=== PATIENT | male | born 1995 | race Caucasian/White ===

== ENCOUNTER 2017-12-29 15:14 | Emergency (ER) | payer BC ==
[~2017-12-29] VITALS: Ht 182.9 cm; Wt 76.6 kg
[2017-12-29 15:17] VITALS: TEMP 36.7; Ht 182.9 cm; Wt 76.6 kg
[2017-12-29 15:34] VITALS: O2SAT 96
--- NOTE | 2017-12-29 15:44 | EMERGENCY ROOM VISIT NOTE ---
History Report prepared by Taiwo: José Manuel Parada Under the Supervision of: Dr. Jasen Sharp M.D. First contact with patient: 15:19 Chief Complaint: CHEST PAIN Stated Complaint: CHEST PAIN,LEFT ARM PAIN History of Present Illness The patient is a 22 year old male who presents to the Emergency Room with complaints of intermittent, sharp, chest pain beginning a month ago. The patient states his symptoms were intermittent and lasted about 10-15 seconds at first. He reports his symptoms now last for 4-5 minutes at a time. The patient notes he gets dizzy before his episode, is not dizzy during the episode, and then becomes dizzy when the chest pain stops. He states he currently does not have symptoms. The patient reports his symptoms typically occur when he is lying down, and he sometimes gets it when he is sitting up as well. He notes he has not seen a PCP yet because he just moved here. The patient states he does not have chronic health problems, and he smokes almost a pack of cigarettes a day. He reports his biological brother of a heart aneurysm in his 30s, and he does not know the cause of the aneurysm. The patient notes his biological mother has a heart history. 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 The patient reports he does not know if he has a family history of connective tissue disease. He denies alcohol or drug use, fevers, chills, cough, congestion, nausea, vomiting, burning with urination, diarrhea, recent trips, increased pain with eating, and a history of blood clots or gallstones. Source of History: patient Onset: a month ago Position: chest Symptom Intensity: 4-5 minutes Quality: sharp Timing: intermittent Modifying Factors (Worsening): other (lying down) Associated Symptoms: No fevers, No chills, No cough, No nausea, No diarrhea Note: Denies: congestion, burning with urination, recent trips, increased pain with eating Review of Systems See HPI for pertinent positives and negatives. A total of ten systems were reviewed and were otherwise negative. Past Medical & Surgical Medical Problems: (1) No Known Active Medical Problems Family History Heart disease Social History Smoking Status: Current Every Day Smoker Marital Status: single Housing Status: lives with family Occupation Status: employed Current/Historical Medications No Active Prescriptions or Reported Meds Allergies Coded Allergies: No Known Allergies (Unverified , 12/29/17) Physical Exam Vital Signs Date Time Temp Pulse Resp B/P (MAP) Pulse Ox O2 Delivery O2 Flow Rate FiO2 12/29/17 18:36 69 18 122/64 100 12/29/17 18:02 66 16 125/60 99 Room Air 12/29/17 17:21 52 16 122/66 100 Room Air 12/29/17 16:32 61 12/29/17 16:22 65 18 144/85 98 Room Air 12/29/17 15:34 96 Room Air 12/29/17 15:31 97 Room Air 12/29/17 15:17 36.7 70 16 148/79 99 Room Air Physical Exam GENERAL: Awake, alert, well-appearing, in no distress HENT: Normocephalic, atraumatic. Oropharynx unremarkable. EYES: Normal conjunctiva. Sclera non-icteric. NECK: Supple. No nuchal rigidity. FROM. No JVD. RESPIRATORY: Clear to auscultation. CARDIAC: Regular rate, normal rhythm. Extremities warm and well perfused. Pulses equal. ABDOMEN: Soft, non-distended. Mild epigastric discomfort without discrete tenderness to palpation. No rebound or guarding. No masses. RECTAL: Deferred. MUSCULOSKELETAL: Chest examination reveals no tenderness. The back is symmetrical on inspection without obvious abnormality. There is no CVA tenderness to palpation. No joint edema. LOWER EXTREMITIES: Calves are equal size bilaterally and non-tender. No edema. No discoloration. NEURO: Normal sensorium. No sensory or motor deficits noted. SKIN: No rash or jaundice noted. Medical Decision & Procedures ER Provider Diagnostic Interpretation: Bedside echocardiogram per my interpretation: [] Radiology results as stated below per my review and radiologist interpretation: CHEST ONE VIEW PORTABLE CLINICAL HISTORY: Atypical chest pain COMPARISON STUDY: No previous studies for comparison. FINDINGS: The cardiac and mediastinal contours are normal. Mild left hilar prominence is likely vascular. No pneumothorax is visualized. There is no evidence of focal pulmonary consolidation. There is no evidence of failure. No pleural effusions are visualized.[ IMPRESSION: No active disease in the chest. Electronically signed by: Vincent Stevenson M.D. 12/29/2017 3:41 PM Dictated Date/Time: 12/29/2017 3:41 PM Laboratory Results 12/29/17 15:45 Red Blood Count 5.03, Mean Corpuscular Volume 83.3, Mean Corpuscular Hemoglobin 29.6, Mean Corpuscular Hemoglobin Concent 35.6, Mean Platelet Volume 9.8, Neutrophils (%) (Auto) 74.8, Lymphocytes (%) (Auto) 15.8, Monocytes (%) (Auto) 9.0, Eosinophils (%) (Auto) 0.1, Basophils (%) (Auto) 0.1, Neutrophils # (Auto) 6.00, Lymphocytes # (Auto) 1.27, Monocytes # (Auto) 0.72, Eosinophils # (Auto) 0.01, Basophils # (Auto) 0.01 12/29/17 15:45 Test 12/29/17 15:45 12/29/17 17:30 White Blood Count 8.03 K/uL (4.8-10.8) Red Blood Count 5.03 M/uL (4.7-6.1) Hemoglobin 14.9 g/dL (14.0-18.0) Hematocrit 41.9 % (42-52) Mean Corpuscular Volume 83.3 fL (80-100) Mean Corpuscular Hemoglobin 29.6 pg (25-34) Mean Corpuscular Hemoglobin Concent 35.6 g/dl (32-36) Platelet Count 215 K/uL (130-400) Mean Platelet Volume 9.8 fL (7.4-10.4) Neutrophils (%) (Auto) 74.8 % Lymphocytes (%) (Auto) 15.8 % Monocytes (%) (Auto) 9.0 % Eosinophils (%) (Auto) 0.1 % Basophils (%) (Auto) 0.1 % Neutrophils # (Auto) 6.00 K/uL (1.4-6.5) Lymphocytes # (Auto) 1.27 K/uL (1.2-3.4) Monocytes # (Auto) 0.72 K/uL (0.11-0.59) Eosinophils # (Auto) 0.01 K/uL (0-0.5) Basophils # (Auto) 0.01 K/uL (0-0.2) RDW Standard Deviation 38.6 fL (36.4-46.3) RDW Coefficient of Variation 12.8 % (11.5-14.5) Immature Granulocyte % (Auto) 0.2 % Immature Granulocyte # (Auto) 0.02 K/uL (0.00-0.02) Anion Gap 5.0 mmol/L (3-11) Est Creatinine Clear Calc Drug Dose 126.6 ml/min Estimated GFR () 124.1 Estimated GFR (Non- 107.1 BUN/Creatinine Ratio 11.1 (10-20) Calcium Level 8.7 mg/dl (8.5-10.1) Magnesium Level 2.1 mg/dl (1.8-2.4) Total Bilirubin 0.8 mg/dl (0.2-1) Direct Bilirubin 0.2 mg/dl (0-0.2) Aspartate Amino Transf (AST/SGOT) 18 U/L (15-37) Alanine Aminotransferase (ALT/SGPT) 33 U/L (12-78) Alkaline Phosphatase 73 U/L (45-117) Troponin I < 0.015 ng/ml (0-0.045) Total Protein 7.7 gm/dl (6.4-8.2) Albumin 4.2 gm/dl (3.4-5.0) Lipase 141 U/L (73-393) Bedside Troponin I < 0.030 ng/ml (0-0.045) Laboratory results reviewed by me Medications Administered Medications (Trade) Dose Ordered Sig/Camilla Route Start Time Stop Time Status Last Admin Dose Admin Sodium Chloride 1,000 ml @ 999 mls/hr Q1H1M STAT IV 12/29/17 15:45 12/29/17 16:45 DC 12/29/17 15:49 999 MLS/HR Sodium Chloride 1,000 ml @ 999 mls/hr Q1H1M STAT IV 12/29/17 17:02 12/29/17 18:02 DC 12/29/17 17:21 999 MLS/HR ECG Per My Interpretation Indication: chest pain Rate (beats per minute): 58 Rhythm: sinus bradycardia Findings: RBBB (incomplete), no acute ischemic change, other (Normal axis.) ED Course 1526: The patient was evaluated in room B11B. A complete history and physical exam was performed. 1638: I reevaluated the patient and performed a bedside echocardiogram. Please refer to the diagnostic interpretation for findings. Medical Decision I reviewed the patient's past medical history, medications, and the nursing notes as described above. Differential diagnosis: Etiologies such as cardiac ischemia, aortic dissection, pulmonary embolism, pneumonia, pneumothorax, musculoskeletal, infections, pericarditis, myocarditis , esophageal rupture, gastrointestinal, as well as others were entertained. Patient is a 22-year-old gentleman with a family history of a biological brother who he believes in his 30s from a "heart aneurysm" per hpi. While the patient is well-appearing in no acute distress, afebrile, hypertensive with systolic in the 140s but otherwise stable vital signs. EKG incomplete right bundle branch block and is unremarkable. Chest x-ray unremarkable with clear lungs and normal mediastinum. Bedside echo demonstrates grossly normal LV size and function, no pericardial effusion, question of slightly enlarged RV with grossly normal function. Aortic root 29mm wnl. Findings discussed with the patient and sister at bedside however sister is concerned regarding the family history of aneurysm. Thus, CTA performed and unremarkable, negative for dissection,aneurysm, or PE. Delta troponin again negative. Heart score 1, low risk, acs unlikely. Unclear etiology to patient's sx at this time. Given patients reproducible epigastric discomfort sx possibly reflux although asymptomatic at this time. Patient counseled on smoking cessation. Plan for f/u with pcp and possible cardiology referral for holter monitor/formal echo. Findings and plan for follow-up reviewed with patient. Patient agreeable and d/c 'd per discharge instructions. Medication Reconcilliation Current Medication List: was personally reviewed by me Blood Pressure Screening Patient's blood pressure: Normal blood pressure Blood pressure disposition: Did not require urgent referral Impression Primary Impression: Substernal precordial chest pain Scribe Attestation The scribe's documentation has been prepared under my direction and personally reviewed by me in its entirety. I confirm that the note above accurately reflects all work, treatment, procedures, and medical decision making performed by me. Departure Information Dispostion Home / Self-Care Prescriptions No Active Prescriptions or Reported Meds Referrals No Doctor, Assigned (PCP) Gaetano Nolasco M.D. Patient Instructions ED Chest Pain Atypical Unkn Cause, ED Smoking Cessation, My [facility] Additional Instructions Please follow up with and establish care with a primary care physician in the next week for re-evaluation and likely cardiology referral. We have provided you with an option for cardiology follow-up with Dr. Nolasco, if needed. The cause of your symptoms is unclear at this time. Otherwise, your exam, EKG, chest xray, lab results, bedside US of your heart, and CT scan of your aorta did not show signs of an emergent condition at this time. Drink plenty of fluids to ensure hydration. You should stop smoking as this will improve your symptoms in the short-term, as well as minimize your risk for developing medical problems in the future. Return to the emergency department for worsening symptoms as described in the accompanying instructions.
[2017-12-29] MEDS ORDERED: SODIUM CHLORIDE 0.9% 1000ML 1,000 ML IV STA ×2 (15:45→17:02)
[2017-12-29 15:55] LABS: BASO % 0.1 %; BASO ABS # 0.01 K/uL (0-0.2); EOS % 0.1 %; EOS ABS # 0.01 K/uL (0-0.5); HEMATOCRIT 41.9 % (42-52); HEMOGLOBIN 14.9 g/dL (14.0-18.0); IG# 0.02 K/uL (0.00-0.02); LYMPH % 15.8 %; LYMPH ABS # 1.27 K/uL (1.2-3.4); MEAN CELL VOLUME 83.3 fL (80-100); MEAN CORPUSCULAR HEMOGLOBIN 29.6 pg (25-34); MEAN CORPUSCULAR HGB CONC 35.6 g/dl (32-36); MEAN PLATELET VOLUME 9.8 fL (7.4-10.4); MONO ABS # 0.72 K/uL (0.11-0.59); NEUT % 74.8 %; PLATELET COUNT 215 K/uL (130-400); RED CELL DISTRIBUTION WIDTH CV 12.8 % (11.5-14.5); RED CELL DISTRIBUTION WIDTH SD 38.6 fL (36.4-46.3); WHITE BLOOD COUNT 8.03 K/uL (4.8-10.8)
[2017-12-29 16:20] LABS: ALBUMIN 4.2 gm/dl (3.4-5.0); ALKALINE PHOSPHATASE 73 U/L (45-117); ALT/SGPT 33 U/L (12-78); AST/SGOT 18 U/L (15-37); BLOOD UREA NITROGEN 11 mg/dl (7-18); CALCIUM 8.7 mg/dl (8.5-10.1); CARBON DIOXIDE 28 mmol/L (21-32); GLUCOSE 118 mg/dl (70-99); LIPASE 141 U/L (73-393); POTASSIUM 3.9 mmol/L (3.5-5.1); SODIUM 136 mmol/L (136-145); TOTAL PROTEIN 7.7 gm/dl (6.4-8.2)
[2017-12-29] MEDS ORDERED: OPTIRAY 320 IV PRN (17:15)
--- NOTE | 2017-12-29 18:11 | DIAGNOSTIC IMAGING REPORT ---
CT ANGIOGRAPHY OF THE CHEST WITHOUT AND WITH CONTRAST CLINICAL HISTORY: Atypical chest pain. Possible dissection. COMPARISON STUDY: No previous studies for comparison. FINDINGS: Unenhanced images were obtained the thorax. Patient was then scanned in a dynamic helical fashion during intravenous administration 115 cc of Optiray 320. MIP imaging was performed. A dose reduction technique was utilized according to the principles of ALARA Unenhanced images reveal no evidence of acute aortic hematoma. Postcontrast images reveal no thyroid masses. There are no pathologically enlarged mediastinal, axillary, or hilar lymph nodes. There is no evidence of thoracic aortic aneurysm or dissection. There are no pulmonary artery filling defects to indicate acute pulmonary embolism. There is no pneumothorax. There are no pleural effusions. There is no focal pulmonary consolidation. IMPRESSION: 1. No acute intrathoracic findings 2. No evidence of thoracic aortic aneurysm or dissection 3. No evidence of acute pulmonary embolism 4. No evidence of focal pulmonary consolidation Electronically signed by: Vincent Stevenson M.D. 12/29/2017 6:09 PM Dictated Date/Time: 12/29/2017 6:06 PM
--- NOTE | 2017-12-29 18:15 | DIAGNOSTIC IMAGING REPORT ---
CT ANGIO ABD/PELVIS WITH CONTRAST CT DOSE: 732.19 mGy.cm CLINICAL HISTORY: Chest and abdominal pain. Possible dissection. TECHNIQUE: The patient was scanned in a dynamic helical fashion during intravenous administration of 1 15 cc of Optiray 320. MIP imaging was performed. A dose lowering technique was utilized adhering to the principles of ALARA. COMPARISON STUDY: None. FINDINGS: Visualized portions lung bases are unremarkable. No hepatic masses are visualized. The portal veins appear patent. No gallbladder abnormalities are visualized. The spleen appears normal on this arterial phase study. No pancreatic masses are visualized. No adrenal masses are visualized. No renal masses are visualized this arterial phase study. There is no evidence of bowel obstruction. There is no evidence of free pelvic fluid. There is no evidence of free intraperitoneal air. There is no evidence of abdominal aortic aneurysm or dissection. There is no evidence of superior mesenteric artery celiac artery or renal artery stenosis. There are 2 main left renal arteries. There is no evidence of iliac artery stenosis. IMPRESSION: 1. No acute abdominal or pelvic findings 2. No evidence of abdominal aortic aneurysm or dissection 3. No evidence of mesenteric artery stenosis 4. No evidence of bowel obstruction. No evidence of free air. No acute inflammatory changes. Electronically signed by: Vincent Stevenson M.D. 12/29/2017 6:14 PM Dictated Date/Time: 12/29/2017 6:10 PM
[2017-12-29 18:36] VITALS: BP 122/64; PULSE 69; O2SAT 100
== END 2017-12-29 18:41 | disposition home or self-care (01) ==
LOC: C.EDB 15:16
DX: R07.2 Precordial pain (principal); F17.200 Nicotine dependence, unspecified, uncomplicated